=== PATIENT | female | born 1990 | race Caucasian/White ===

== ENCOUNTER 2019-03-28 21:58 | Emergency (ER) | payer SELFPAY ==
[~2019-03-28] VITALS: Ht 152.4 cm; Wt 104.5 kg
[2019-03-28 22:53] LABS: EOS # 0.3 (0.04-0.40); HEMATOCRIT 43.1 % (37.0-47.0); LYMPH# 3.6 (1.50-4.00); MEAN CELL VOLUME 82 fl (78-100); MEAN CORPUSCULAR HEMOGLOBIN 27 pg (27-31); MEAN CORPUSCULAR HGB CONC 33 g/dL (33-37); MEAN PLATELET VOLUME 10.1 fl (7.4-10.4); MONO # 0.9 (0.20-0.80); NEU # 7.7 (1.40-6.50); PLATELET COUNT 375 K/mm3 (130-400); RED BLOOD COUNT 5.25 M/mm3 (4.10-5.30); WHITE BLOOD COUNT 12.5 K/mm3 (4.8-10.8)
[2019-03-28 23:05] LABS: POTASSIUM 3.8 mmol/L (3.5-5.1); SODIUM 139 mmol/L (136-145)
[2019-03-28 23:06] LABS: CALCIUM 9.5 mg/dL (8.3-10.5)
[2019-03-28 23:07] LABS: GLUCOSE 121 mg/dL (65-105)
[2019-03-28 23:08] LABS: CARBON DIOXIDE 21 mmol/L (22-29)
[2019-03-28 23:19] LABS: URINE APPEARANCE CLOUDY; URINE COLOR YELLOW; URINE GLUCOSE NEGATIVE (NEGATIVE); URINE KETONE NEGATIVE (NEGATIVE); URINE PROTEIN(semi-quant) NEGATIVE (NEGATIVE)
[2019-03-28 23:20] LABS: URINE BILIRUBIN NEGATIVE (NEGATIVE); URINE BLOOD TRACE (NEGATIVE); URINE LEUKOCYTE ESTERASE 2+ (NEGATIVE); URINE NITRATE NEGATIVE (NEGATIVE); URINE UROBILINOGEN NORMAL (NORMAL)
[2019-03-28 23:21] LABS: URINE MUCUS PRESENT (NOT PRESENT)
[2019-03-28 23:22] LABS: TROPONIN-I < 0.03 ng/mL (<0.030)
[2019-03-29] MEDS ORDERED: PREDNISONE20 M1 PO (00:06)
[2019-03-29 00:15] VITALS: BP 121/66
== END 2019-03-29 00:15 | disposition home or self-care (01) ==
LOC: ED 21:58
PROVIDERS: Physician Assistant
DX: R07.89 Other chest pain (principal); E28.2 Polycystic ovarian syndrome; F17.290 Nicotine dependence, other tobacco product, uncomplicated
CPT/HCPCS: J1885